=== PATIENT | female | born 1960 | race African-American/Black ===

== ENCOUNTER 2018-09-06 15:23 | Emergency (ER) | payer MEDICARE, MEDICAID ==
[~2018-09-06] VITALS: Ht 170.2 cm; Wt 66.0 kg
[2018-09-06 16:34] LABS: CHLORIDE 105 mEq/L (98-107)
[2018-09-06 16:35] LABS: BASOPHILS % 0.8 % (0.0-2.0); EOSINOPHILS % 3.4 % (0.0-5.0); HEMATOCRIT. 39.1 % (36.0-48.0); HEMOGLOBIN. 13.3 g/dL (12.0-16.0); LYMPHOCYTES % 49.6 % (20.0-50.0); MEAN CORPUSCULAR HEMOGLOBIN 30.7 pg (28.0-32.0); MEAN CORPUSCULAR VOLUME 90.3 fL (81.0-99.0); MEAN PLATELET VOLUME 8.8 fl (7.4-10.4); MONOCYTES % 7.2 % (2.0-8.0); PLATELET 237 x1000/uL (130-400); RED BLOOD CELL COUNT 4.33 mill/uL (4.2-5.4); RED CELL DISTRIBUTION WIDTH 13.9 % (11.6-14.6)
[2018-09-06 16:39] LABS: ETHANOL BLOOD < 10 mg/dL
[2018-09-06 19:55] VITALS: BP 139/94
== END 2018-09-06 21:07 | disposition home or self-care (01) ==
LOC: ER 15:23
DX: R53.1 Weakness (principal); F32.9 Major depressive disorder, single episode, unspecified; I10 Essential (primary) hypertension
CPT/HCPCS: 36415; 80053; 80307; 80329; 85025; 99284; G0482